=== PATIENT | female | born 1930 | race Caucasian/White ===

== ENCOUNTER 2017-12-30 20:53 | Emergency (ER) | payer MEDICARE, OTHER, MEDICAID ==
[2017-12-30] MEDS: SOD CHLORIDE 0.9% 500 ML IV (23:13)
[2017-12-30] MEDS: morphine 2 MG INJ IV (23:13)
[2017-12-30] MEDS: ONDANSETRON 4 MG INJ IV (23:14)
[2017-12-30 23:24] LABS: WHITE BLOOD COUNT 4.6 10^3/ul (4.8-10.8)
[2017-12-30 23:24] LABS: HEMATOCRIT 39.7 % (37.0-47.0); HEMOGLOBIN 13.1 g/dl (12.0-16.0); MEAN CORPUSCULAR HEMOGLOBIN 31.3 pg (29.0-33.0); MEAN CORPUSCULAR VOLUME 94.7 fl (82.0-101.0); MEAN PLATELET VOLUME 9.1 fl (7.4-10.4); PLATELET COUNT 248 10^3/UL (140-415); RED BLOOD COUNT 4.19 10^6/ul (4.20-5.40); RED CELL DISTRIBUTION WIDTH 12.2 % (11.5-14.5)
[2017-12-30 23:43] LABS: POSITIVE DIFF @See below
[2017-12-30 23:44] LABS: ADD MAN DIFF? YES
[2017-12-30 23:46] LABS: ALANINE AMINOTRANSFERASE 18 IU/L (13-69); ALBUMIN 3.8 g/dl (3.3-4.9); ALBUMIN/GLOBULIN RATIO 1.11; ALKALINE PHOSPHATASE 71 IU/L (42-121); ANION GAP 8 (8-16); ASPARTATE AMINO TRANSFERASE 30 IU/L (15-46); BILIRUBIN,INDIRECT 0.3 mg/dl (0-1.1); BILIRUBIN,TOTAL 0.3 mg/dl (0.2-1.3); BLOOD UREA NITROGEN 16 mg/dl (7-20); CALCIUM 9.5 mg/dl (8.4-10.2); CARBON DIOXIDE 32 mmol/L (21-31); CHLORIDE 106 mmol/L (97-110); CREATININE 0.63 mg/dl (0.44-1.00); GLUCOSE 118 mg/dl (70-220); LIPASE 51 U/L (23-300); SODIUM 142 mmol/L (135-144); TOTAL PROTEIN 7.2 g/dl (6.1-8.1)
[2017-12-30 23:47] LABS: LACTIC ACID 1.5 mmol/L (0.5-2.0)
[2017-12-31 00:17] LABS: ADD UMIC YES; UR ASCORBIC ACID 20 mg/dL (NEGATIVE); UR BACTERIA FEW /HPF (NONE SEEN); UR BILIRUBIN (Dip) NEGATIVE (NEGATIVE); UR BLOOD (Dip) NEGATIVE (NEGATIVE); UR CLARITY CLEAR (CLEAR); UR COLOR YELLOW (YELLOW); UR GLUCOSE (Dip) NEGATIVE (NEGATIVE); UR KETONES (Dip) NEGATIVE (NEGATIVE); UR LEUKOCYTE ESTERASE (Dip) TRACE Leu/ul (NEGATIVE); UR MUCUS FEW /HPF (NONE SEEN); UR NITRITE (Dip) NEGATIVE (NEGATIVE); UR RBC 0 /HPF (0-5); UR SPECIFIC GRAVITY (Dip) 1.014 (1.003-1.030); UR SQUAMOUS EPITHELIAL CELL FEW /HPF (FEW); UR TOTAL PROTEIN (Dip) NEGATIVE (NEGATIVE); UR UROBILINOGEN (Dip) NEGATIVE (NEGATIVE); UR WBC 3 /HPF (0-5)
[2017-12-31 00:49] LABS: BASOPHILS % (M) 1 % (0-2); EOSINOPHILS % (M) 2 % (0-7); LYMPHOCYTES #M 1.1 10^3/ul (0.8-2.9); LYMPHOCYTES % (M) 26 % (15-51); MONOCYTE #M 0.4 10^3/ul (0.3-0.9); MONOCYTES % (M) 9 % (0-11); PLATELET ESTIMATE NORMAL; REACTIVE LYMPHOCYTES% (M) 2 % (0-0); SEGMENTED NEUTROPHILS (M) % 60 % (39-77); SMUDGE%M 3 % (0-0)
== END 2017-12-31 01:25 | disposition home or self-care (01) ==
LOC: E/R 12-31 01:25
DX: R10.84 Generalized abdominal pain (principal); R11.2 Nausea with vomiting, unspecified
CPT/HCPCS: 36415; 71045; 74176; 80053; 81001; 83605; 83690; 85025; 93005; 96374; 96375; 99285-25